=== PATIENT | male | born 1990 | race Two or more races ===

== ENCOUNTER 2024-01-16 17:43 | Emergency (ER) | payer SELFPAY ==
[~2024-01-16] VITALS: Ht 167.6 cm; Wt 86.3 kg
[2024-01-16 17:50] VITALS: BP 149/85; PULSE 108; RESP 14; TEMP 98.6
[2024-01-16] MEDS ORDERED: IBUPROFEN 600 MG TAB PO ONE (19:30)
[2024-01-16] MEDS ORDERED: IBUP-1455 PO (20:43)
[2024-01-16 20:44] VITALS: O2SAT 98
[2024-01-16] MEDS: KETOROLAC TROMETH 60MG/2ML VIAL IM ONE (20:56)
== END 2024-01-16 21:13 | disposition home or self-care (01) ==
LOC: ER 17:43 → EDBD 17:43 → ER 21:13
DX: G89.29 Other chronic pain (principal); M54.59 Other low back pain
CPT/HCPCS: 96372; 99283; J1885

== ENCOUNTER 2024-01-17 11:19 | Emergency (ER) | payer MEDICARE, OTHER ==
[~2024-01-17] VITALS: Ht 182.9 cm; Wt 96.3 kg
[~2024-01-17 11:19] MED LIST: IBUP-1455 PO
[2024-01-17 12:55] VITALS: PULSE 90; RESP 16; O2SAT 99
[2024-01-17 13:38] LABS: Anion Gap 3 (5-15); Carbon Dioxide 29 mmol/L (20-30); Chloride 106 mmol/L (98-107); Potassium 3.8 mmol/L (3.5-5.1); Sodium 138 mmol/L (136-145)
[2024-01-17 13:39] LABS: Calcium 9.9 mg/dL (8.5-10.1)
[2024-01-17] MEDS: QUEtiapine FUMARATE 100 MG TAB PO ONE (13:41)
[2024-01-17 13:44] LABS: BUN/Creatinine Ratio 17.2 (10.0-20.0); Blood Alcohol < 3.0 mg/dL (<10); Blood Urea Nitrogen 17 mg/dL (9-23); Glucose 105 mg/dL (74-106)
[2024-01-17 13:45] LABS: Acetaminophen < 2.0 UG/ML (10.0-20.0)
[2024-01-17 13:55] LABS: Salicylate < 3.0 mg/dL (2.8-20.0)
[2024-01-17 15:15] LABS: Amphetamine Screen, Urine Neg (NEGATIVE); Barbiturate Scree,Urine Neg (NEGATIVE); Benzodiazephine Screen, Urine Neg (NEGATIVE); Cocaine Screen, Urine Neg (NEGATIVE); Opiate Scree,Urine Neg (NEGATIVE); Phencyclidine Screen, Urine Neg (NEGATIVE)
[2024-01-17 15:16] LABS: Cannabinoid Screen, Urine Pos (NEGATIVE)
[2024-01-17 20:00] VITALS: PULSE 82; RESP 18; O2SAT 98
[2024-01-18 07:35] VITALS: PULSE 66; RESP 18; O2SAT 97
[2024-01-18] MEDS: QUEtiapine FUMARATE 100 MG TAB PO SCH (07:49)
[2024-01-19 20:00] VITALS: PULSE 88; RESP 18; O2SAT 98
[2024-01-20 07:53] VITALS: BP 131/68; PULSE 62; RESP 16; TEMP 97.7; O2SAT 97
== END 2024-01-20 19:12 | disposition home or self-care (01) ==
LOC: ER 11:19
DX: F29 Unspecified psychosis not due to a substance or known physiological condition (principal); F31.9 Bipolar disorder, unspecified; F17.210 Nicotine dependence, cigarettes, uncomplicated; F15.90 Other stimulant use, unspecified, uncomplicated; Z98.890 Other specified postprocedural states; Z79.899 Other long term (current) drug therapy
CPT/HCPCS: 36415; 80048; 80307; 80320; 80329